=== PATIENT | female | born 1985 | race Caucasian/White ===

== ENCOUNTER 2018-02-03 15:57 | Inpatient (IN) | payer OTHER ==
[2018-02-03] MEDS ORDERED: NS / Oxytocin 40 units/1000ml 1,000 ML IV PRN (17:34)
[2018-02-03] MEDS ORDERED: HYDROcodone/Acetaminophen 5/325 mg Tablet PO PRN ×2 (17:34)
[2018-02-03] MEDS ORDERED: Lactated Ringer's 1,000 ML IV SCH (17:34)
[2018-02-03] MEDS ORDERED: Promethazine HCl 25 MG/ML VIAL IM PRN (17:34)
[2018-02-03] MEDS ORDERED: Butorphanol Tartrate 1 MG/ML VIAL SLOW IVP PRN (17:34)
[2018-02-03] MEDS ORDERED: Lidocaine 1% (PF) 30 ML VIAL SC PRN (17:34)
[2018-02-03] MEDS ORDERED: Ibuprofen 800 MG TAB PO PRN (17:34)
[2018-02-03] MEDS ORDERED: Ondansetron HCl/PF 4 MG/2 ML Vial IVP PRN (17:34)
[2018-02-03] MEDS ORDERED: Zolpidem Tartrate 5 MG TAB PO PRN (17:34)
[2018-02-03] MEDS ORDERED: NS w/ Oxytocin 10 units 500 ML IV SCH (17:34)
[2018-02-03 17:43] VITALS: BMI 27.1
[2018-02-03] MEDS ORDERED: DISCONTINUE ALL PREVIOUS NARCOTICS FS SCH (17:45)
[2018-02-03 17:55] LABS: Hemoglobin 11.5 g/dL (12.0-16.0); Mean Corpuscular HGB CONC 34.5 g/dL (32.0-36.0); Mean Corpuscular Hemoglobin 31.4 pg (27.0-31.0); Mean Platelet Volume 10.6 fL (7.4-10.4); Platelet Count 140 thou/uL (130-400); RBC Distribution Width 13.3 % (11.5-14.5); Red Blood Cell (RBC) Count 3.66 mill/uL (4.20-5.40); White Blood Cell (WBC) Count 6.9 thou/uL (4.8-10.8)
[2018-02-03] MEDS ORDERED: Fentanyl 100 MCG/2 ML VIAL ONE (18:00)
[2018-02-03] MEDS: Bupivacaine 0.5% 20 ML, fentaNYL Citrate/PF 400 MCG in Sodium Chloride 0.9% 72 ML EPIDURAL SCH (18:15)
[2018-02-03 18:24] LABS: Syphilis Antibody Nonreactive (Nonreactive); Syphilis Antibody Index 0.06 S/CO (<1.00 Non-Reactive)
[2018-02-03 18:30] LABS: HBSAg Index 0.24 S/CO (0-0.99); Hep B Surf Ag Non-Reactive S/CO (NonReactive)
[2018-02-03] MEDS ORDERED: Lactated Ringer's 500 ML IV PRN (18:34)
[2018-02-03] MEDS ORDERED: Naloxone HCl 0.4 mg/ml Vial IVP PRN ×2 (18:34)
[2018-02-03] MEDS ORDERED: ePHEDrine/0.9% NaCl/PF SYRINGE 50 mg/10 ml SLOW IVP PRN (18:34)
[2018-02-03] MEDS ORDERED: diphenhydrAMINE 50 MG/ML VIAL IVP PRN (18:34)
[2018-02-03] MEDS ORDERED: Eucerin (Mineral Oil/Petrolatum,White) 30 gm Jar TOP PRN (18:34)
[2018-02-03] MEDS: Lactated Ringer's 1,000 ML IV SCH ×2 (18:45→23:39)
[2018-02-03] MEDS ORDERED: fentaNYL Citrate/PF 400 MCG, Bupivacaine 0.5% 20 ML in Sodium Chloride 0.9% 72 ML EPIDURAL SCH (18:45)
[2018-02-03] MEDS ORDERED: Communication Order-Pharmacy FS SCH (18:45)
[2018-02-03] MEDS ORDERED: Acetaminophen 1,000 MG in Premix Bag 1 BAG IVPB SCH (19:45)
[2018-02-03] MEDS: Calcium Carbonate 500 MG ChewTAB PO PRN (21:57)
[2018-02-04] MEDS: Bupivacaine 0.5% 20 ML, fentaNYL Citrate/PF 400 MCG in Sodium Chloride 0.9% 72 ML EPIDURAL SCH ×2 (01:08→06:54)
[2018-02-04] MEDS: Calcium Carbonate 500 MG ChewTAB PO PRN (02:29)
[2018-02-04] MEDS ORDERED: Terbutaline Sulfate 1 MG/ML VIAL ONE (02:38)
[2018-02-04] MEDS: Lactated Ringer's 1,000 ML IV SCH (04:27)
--- NOTE | 2018-02-04 07:24 | PDOC.LDHP ---
Labor and Delivery H&P Chief complaint: contractions Current gestational age (weeks): 40 Dating criteria: first trimester ultrasound Grav: 1 Para: 0 Current complications: none Abnormal US findings: No Current medications: pre-manuela vitamins Allergies/Adverse Reactions: Allergies Allergy/AdvReac Type Severity Reaction Status Date / Time No Known Allergies Allergy Verified 02/03/18 17:38 Social history: none - Physical Exam General: NAD, resting, breathing through contractions, other FHT: category 1, category 2, category 3, acceleration absent, early decelerations, variable decelerations, late decelerations, variability present, absent or minimal variables - Vaginal Exam cm dilated: 7 Effacement: 90% Station: 0 - OB Labs Blood type: A RH: positive Antibody Screen: negative HIV: negative RPR: negative HEPSAg: negative 1 hour GCT: negative GBS: negative Urine drug screen: not done - Assessment L&D Assessment: term patient in labor - Plan Plan: admit to L&D, labor augmentation if indicated
[2018-02-04] MEDS ORDERED: Ropivacaine 0.2% HCl/PF 20 ML ONE (10:52)
[2018-02-04] MEDS ORDERED: Benzocaine/Menthol 20-0.5% 60 ML CAN TOP PRN (13:15)
[2018-02-04] MEDS ORDERED: Preparation H Ointment 28 GM TUBE PR PRN (13:15)
[2018-02-04] MEDS ORDERED: Adacel (T-DAP) 0.5 ML VIAL IM ONE (13:15)
[2018-02-04] MEDS ORDERED: Misoprostol 200 MCG TAB VAG PRN (13:15)
[2018-02-04] MEDS ORDERED: NS / Oxytocin 40 units/1000ml 1,000 ML IV SCH (13:15)
[2018-02-04] MEDS ORDERED: Bisacodyl 10 MG SUPP PR PRN (13:15)
[2018-02-04] MEDS ORDERED: diphenhydrAMINE 25 MG CAP PO PRN (13:15)
[2018-02-04] MEDS ORDERED: traMADol HCl 50 MG TAB PO PRN ×2 (13:15)
[2018-02-04] MEDS ORDERED: Milk Of Magnesia 30 ML UDCUP PO PRN (13:15)
--- NOTE | 2018-02-04 13:22 | PDOC.OPDEL ---
OB Operative/Delivery Note Delivery Dr/Surgeon: Gómez Pre-Delivery Diagnosis: active labor Procedure/Post Delivery Dx: operative vaginal delivery Weeks gestation: 40 Anesthesia: epidural - Findings A Sex: male - 1 min: 8 - 5 min: 9 - Additional Findings/Plan Placenta delivered: spontaneous Repaired Obstetrical Laceration: 2nd degree Estimated blood loss: 282ml QBL Compilations/Other Findings: none Post delivery plan: routine recovery (Low forceps assited vaginal delivery for non reassuring heart rate tracing. C/C/+4 OA.....)
[2018-02-04] MEDS: Ibuprofen 800 MG TAB PO SCH ×2 (14:09→20:46)
[2018-02-04 14:35] LABS: Actual Bicarbonate (HCO3v) 21 mEq/L (22-28); Analyzer IN Cardio OR; pH (Cord, venous) 7.28 (7.32-7.43)
[2018-02-04 14:36] LABS: Base Excess -5.8 mEq/L (-2.0 to +3.0)
[2018-02-04] MEDS: Ferrous Sulfate 325 MG TAB PO SCH (17:59)
[2018-02-04] MEDS: Docusate Calcium (SURFAK) 240 MG CAP PO SCH (20:46)
[2018-02-04] MEDS ORDERED: Bupivacaine/Epinephrine 0.25% 30 ML VIAL ONE (21:00)
[2018-02-05] MEDS: Ibuprofen 800 MG TAB PO SCH ×3 (06:37→22:16)
[2018-02-05] MEDS: Acetaminophen 325 MG TAB PO PRN ×3 (06:37→19:03)
[2018-02-05] MEDS: Ferrous Sulfate 325 MG TAB PO SCH ×2 (08:06→16:08)
[2018-02-05] MEDS: Docusate Calcium (SURFAK) 240 MG CAP PO SCH ×2 (09:03→22:17)
[2018-02-05] MEDS: Prenatal Vitamin 1 TAB PO SCH (09:50)
--- NOTE | 2018-02-05 12:25 | PDOC.PP ---
Post Progress Note Post Day #: 1 PO intake tolerated: yes Flatus: yes Ambulation: yes Vital Signs (12 hours) Temp Pulse Resp BP 02/05/18 12:04 98.1 F 85 20 117/75 02/05/18 08:50 98.0 F 78 20 02/05/18 07:57 98.0 F 78 20 109/68 02/05/18 04:20 98.0 F 81 18 111/69 02/05/18 00:30 97.9 F 83 18 Weight Weight 168 lb - Physical Examination General: NAD Cardiovascular: no m/r/g, RRR Respiratory: clear to auscultation bilaterally, non-labored breathing Abdominal: + bowel sounds, lochia, no distention, appropriately TTP Result Diagrams: 02/03/18 16:59 Additional Labs: Post Labs Blood Type A POSITIVE 02/03/18 16:59 Hep Bs Antigen Non-Reactive S/CO (NonReactive) 02/03/18 16:59 - Assessment/Plan doing well post day 1. Anticipate discharge in AM.
[2018-02-06] MEDS: Ibuprofen 800 MG TAB PO SCH (05:44)
[2018-02-06] MEDS: Ferrous Sulfate 325 MG TAB PO SCH (07:49)
[2018-02-06] MEDS: Docusate Calcium (SURFAK) 240 MG CAP PO SCH (07:49)
--- NOTE | 2018-02-06 08:07 | PDOC.PP ---
Post Progress Note Post Day #: 1 PO intake tolerated: yes Flatus: yes Ambulation: yes Vital Signs (12 hours) Temp Pulse Resp BP 02/05/18 20:25 98.1 F 77 18 124/69 Weight Weight 168 lb - Physical Examination General: NAD Cardiovascular: no m/r/g, RRR Respiratory: clear to auscultation bilaterally, non-labored breathing Abdominal: + bowel sounds, lochia, no distention, appropriately TTP Result Diagrams: 02/03/18 16:59 Additional Labs: Post Labs Blood Type A POSITIVE 02/03/18 16:59 Hep Bs Antigen Non-Reactive S/CO (NonReactive) 02/03/18 16:59 - Assessment/Plan doing well post day 2 d/c home .follow up in 6 weeks.
[2018-02-06 08:20] VITALS: BP 120/69; TEMP 97.7
[2018-02-06] MEDS: Acetaminophen 325 MG TAB PO PRN (08:54)
[2018-02-06] MEDS: Prenatal Vitamin 1 TAB PO SCH (08:54)
== END 2018-02-06 14:05 | disposition home or self-care (01) | DRG 775 ==
LOC: L&D/OP 15:57 → L&D 15:58 → 3SW 02-04 15:52
PROVIDERS: ADMIT Obstetrics & Gynecology; ATTEND Obstetrics & Gynecology
PROC: 10D07Z3 Extraction of Products of Conception, Low Forceps, Via Natural or Artificial Opening (ICD-10-PCS; principal; 2018-02-04)
PROC: 0KQM0ZZ Repair Perineum Muscle, Open Approach (ICD-10-PCS; 2018-02-04)
DX: O69.81X0 Labor and delivery complicated by cord around neck, without compression, not applicable or unspecified (principal); O76 Abnormality in fetal heart rate and rhythm complicating labor and delivery; O70.1 Second degree perineal laceration during delivery; Z3A.40 40 weeks gestation of pregnancy; Z37.0 Single live birth
CPT/HCPCS: 51702; 82805; 86780; 86850; 86900; 86901; 87340; 90715; 99285; J0131; J2001; J2405; J2795; J3010; J3105; J3490; J7050

== ENCOUNTER 2020-07-06 08:13 | Outpatient (CLI) | payer BC ==
[2020-07-07 02:42] LABS: SARS-CoV-2 PCR by NAA Not Detected (NotDetected)
== END 2020-07-06 08:14 | disposition home or self-care (01) ==
LOC: LABBT 08:13
PROVIDERS: ATTEND Obstetrics & Gynecology
DX: Z20.822 Contact with and (suspected) exposure to COVID-19 (principal)
CPT/HCPCS: 87635; U0003; U0005

== ENCOUNTER 2020-07-08 19:15 | Inpatient (IN) | payer BC ==
[~2020-07-08 19:15] MED LIST: Bupivacaine HCl 0.25%/Epi 0.0005/PF 10 ML VIAL FS ONE
[2020-07-08] MEDS ORDERED: NS / Oxytocin 40 units/1000ml 1,000 ML IV PRN (21:23)
[2020-07-08] MEDS ORDERED: Misoprostol 200 MCG TAB PR PRN (21:23)
[2020-07-08] MEDS ORDERED: Ibuprofen 800 MG TAB PO PRN (21:23)
[2020-07-08] MEDS ORDERED: Acetaminophen 500 MG TAB PO PRN (21:23)
[2020-07-08] MEDS ORDERED: Ondansetron PF 4 MG/2 ML Vial IVP PRN (21:23)
[2020-07-08] MEDS ORDERED: Butorphanol Tartrate 1 MG/ML VIAL SLOW IVP PRN (21:23)
[2020-07-08] MEDS ORDERED: Lidocaine 1% (PF) 30 ML VIAL SC PRN (21:23)
[2020-07-08] MEDS ORDERED: HYDROcodone/Acetaminophen 5/325 mg Tablet PO PRN (21:23)
[2020-07-08] MEDS ORDERED: hydrALAZINE 20 MG/ML VIAL SLOW IVP PRN (21:23)
[2020-07-08] MEDS ORDERED: Promethazine HCl 25 MG/ML VIAL IM PRN (21:23)
[2020-07-08] MEDS ORDERED: Carboprost 250 MCG/ML AMP IM PRN (21:23)
[2020-07-08] MEDS ORDERED: NS w/ Oxytocin 30 units 500 ML IVPB SCH (21:29)
[2020-07-08 21:50] VITALS: BMI 29.0
[2020-07-08 22:22] LABS: Hemoglobin 11.1 g/dL (12.0-16.0); Mean Corpuscular Hemoglobin 30.9 pg (27.0-31.0); Mean Corpuscular Volume 90.8 fL (78.0-98.0); Mean Platelet Volume 9.5 fL (7.4-10.4); Platelet Count 154 thou/uL (130-400); RBC Distribution Width 12.9 % (11.5-14.5); Red Blood Cell (RBC) Count 3.61 mill/uL (4.20-5.40); White Blood Cell (WBC) Count 7.5 thou/uL (4.8-10.8)
[2020-07-08] MEDS: Misoprostol 100 MCG TAB VAG SCH (22:30)
[2020-07-08] MEDS: Lactated Ringer's 1,000 ML IV SCH (22:30)
[2020-07-08 23:00] LABS: HBSAg Index 0.19 S/CO (0-0.99); Hep B Surf Ag Non-Reactive S/CO (NonReactive)
[2020-07-08 23:01] LABS: Syphilis Antibody Nonreactive (Nonreactive); Syphilis Antibody Index 0.04 S/CO (<1.00 Non-Reactive)
[2020-07-09] MEDS: Misoprostol 100 MCG TAB VAG SCH ×3 (01:58→17:52)
[2020-07-09] MEDS: Lactated Ringer's 1,000 ML IV SCH ×2 (06:05→17:52)
[2020-07-09] MEDS ORDERED: Fentanyl 4 mcg/Bup 0.1% Cadd 100 ML ONE (06:18)
[2020-07-09] MEDS ORDERED: ePHEDrine 50 MG/ML VIAL SLOW IVP PRN (09:05)
[2020-07-09] MEDS ORDERED: Ondansetron PF 4 MG/2 ML Vial IVP PRN (09:05)
[2020-07-09] MEDS ORDERED: Naloxone HCl 0.4 mg/ml Vial IVP PRN ×2 (09:05)
[2020-07-09] MEDS ORDERED: Promethazine HCl 25 MG/ML VIAL IM PRN (09:05)
[2020-07-09] MEDS ORDERED: Acetaminophen 325 MG TAB PO PRN (09:05)
[2020-07-09] MEDS ORDERED: diphenhydrAMINE 50 MG/ML VIAL IVP PRN (09:05)
[2020-07-09] MEDS ORDERED: Lactated Ringer's 500 ML IV PRN (09:05)
[2020-07-09] MEDS ORDERED: Fentanyl 4 mcg/Bupivacaine 0.1% Cassette 100 ML EPIDURAL SCH (09:15)
[2020-07-09] MEDS ORDERED: Communication Order-Pharmacy FS SCH (09:15)
[2020-07-09] MEDS ORDERED: traMADol HCl 50 MG TAB PO PRN (14:09)
[2020-07-09] MEDS ORDERED: Bisacodyl 10 MG SUPP PR PRN (14:09)
[2020-07-09] MEDS ORDERED: diphenhydrAMINE 25 MG CAP PO PRN (14:09)
[2020-07-09] MEDS ORDERED: Milk Of Magnesia 30 ML UDCUP PO PRN (14:09)
[2020-07-09] MEDS ORDERED: hydrALAZINE 20 MG/ML VIAL SLOW IVP PRN (14:09)
[2020-07-09] MEDS ORDERED: Lanolin Ointment 7 GM TUBE TOP PRN (14:09)
[2020-07-09] MEDS ORDERED: Preparation H Ointment 28 GM TUBE PR PRN (14:09)
--- NOTE | 2020-07-09 14:12 | PDOC.OPDEL ---
OB Operative/Delivery Note Delivery Dr/Surgeon: Gómez Pre-Delivery Diagnosis: elective induction Procedure/Post Delivery Dx: spontaneous vaginal delivery Weeks gestation: 39 Anesthesia: epidural - Findings A Sex: female - 1 min: 8 - 5 min: 9 - Additional Findings/Plan Placenta delivered: spontaneous Repaired Obstetrical Laceration: 2nd degree Estimated blood loss: 310ml Post delivery plan: routine recovery
[2020-07-09] MEDS ORDERED: NS / Oxytocin 40 units/1000ml 1,000 ML IV SCH (14:15)
[2020-07-09] MEDS: Ferrous Sulfate 325 MG TAB PO SCH (17:53)
[2020-07-09] MEDS: Ibuprofen 800 MG TAB PO SCH (21:35)
[2020-07-09] MEDS: Docusate Calcium (SURFAK) 240 MG CAP PO SCH (21:37)
[2020-07-10] MEDS: Ibuprofen 800 MG TAB PO SCH ×2 (06:30→14:08)
--- NOTE | 2020-07-10 06:49 | PDOC.PP ---
Post Progress Note Post Day #: 1 PO intake tolerated: yes Flatus: yes Ambulation: yes Vital Signs (12 hours) Temp Pulse Resp BP 07/10/20 04:15 97.6 F 68 15 94/56 L 07/10/20 01:00 98.5 F 80 16 108/70 07/09/20 20:50 98.4 F 86 16 114/69 Weight Weight 180 lb - Physical Examination General: NAD Cardiovascular: no m/r/g, RRR Respiratory: clear to auscultation bilaterally, non-labored breathing Abdominal: + bowel sounds, lochia Extremities: negative homans (B) Neurological: no gross focal deficits Psychiatric: A&Ox3, normal affect Result Diagrams: 07/08/20 22:13 Additional Labs: Post Labs Hep Bs Antigen Non-Reactive S/CO (NonReactive) 07/08/20 22:13 Blood Type A POSITIVE 07/08/20 22:12 - Assessment/Plan doing well dc home
[2020-07-10] MEDS: Ferrous Sulfate 325 MG TAB PO SCH (07:08)
[2020-07-10] MEDS: Docusate Calcium (SURFAK) 240 MG CAP PO SCH (08:57)
[2020-07-10] MEDS ORDERED: Adacel (T-DAP) 0.5 ML SYRINGE IM ONE (09:00)
[2020-07-10] MEDS ORDERED: Prenatal Vitamin 1 TAB PO SCH (09:00)
[2020-07-10 12:32] VITALS: BP 110/58; TEMP 97.8
== END 2020-07-10 16:59 | disposition home or self-care (01) | DRG 807 ==
LOC: L&D 21:01 → 3SW 07-09 17:16
PROVIDERS: ADMIT Obstetrics & Gynecology; ATTEND Obstetrics & Gynecology
PROC: 10E0XZZ Delivery of Products of Conception, External Approach (ICD-10-PCS; principal; 2020-07-09)
PROC: 0KQM0ZZ Repair Perineum Muscle, Open Approach (ICD-10-PCS; 2020-07-09)
PROC: 10907ZC Drainage of Amniotic Fluid, Therapeutic from Products of Conception, Via Natural or Artificial Opening (ICD-10-PCS; 2020-07-09)
PROC: 3E033VJ Introduction of Other Hormone into Peripheral Vein, Percutaneous Approach (ICD-10-PCS; 2020-07-09)
PROC: 3E0P7VZ Introduction of Hormone into Female Reproductive, Via Natural or Artificial Opening (ICD-10-PCS; 2020-07-09)
DX: O76 Abnormality in fetal heart rate and rhythm complicating labor and delivery (principal); Z37.0 Single live birth; Z3A.39 39 weeks gestation of pregnancy; O70.1 Second degree perineal laceration during delivery; O69.81X0 Labor and delivery complicated by cord around neck, without compression, not applicable or unspecified
CPT/HCPCS: 51702; 85027; 86780; 86850; 86900; 86901; 87340; 87635; J2405; J2590; U0003; U0005

== ENCOUNTER 2023-12-18 15:09 | Outpatient (CLI) | payer BC | END 2023-12-18 15:10 | disposition home or self-care (01) | LOC: BICRAD 15:09 | PROVIDERS: ATTEND Physician Assistant | DX: M54.6 Pain in thoracic spine (principal); M54.50 Low back pain, unspecified | CPT/HCPCS: 72070; 72100 ==